=== PATIENT | female | born 1980 | race Caucasian/White ===

== ENCOUNTER → 2021-10-07 | Outpatient (CLI) | payer MEDICAID ==
--- NOTE | 2021-10-07 18:19 | Diagnostic Imaging Report ---
PROCEDURE: US OB single fetus <14 wks. TECHNIQUE: Multiple real-time grayscale images were obtained over the gravid uterus in various projections. INDICATION: Prior history of molar . There is a single live IUP measuring approximately 8 weeks 3 days gestational age. heart rate was recorded at 169 bpm. No perigestational sac hemorrhage is detected. Maternal adnexa are unremarkable. No adnexal mass or free fluid is detected. IMPRESSION: Single live IUP 8 weeks 3 days gestational age with estimated date of confinement sonographically of 05/16/2022. No complicating features are detected. Dictated by: Dictated on workstation # [id number]
== END ==
LOC: RAD 13:38
PROVIDERS: ATTEND Obstetrics & Gynecology
DX: Z34.91 Encounter for supervision of normal pregnancy, unspecified, first trimester (principal); Z3A.01 Less than 8 weeks gestation of pregnancy; Z87.59 Personal history of other complications of pregnancy, childbirth and the puerperium
CPT/HCPCS: 76801

== ENCOUNTER → 2021-12-27 | Outpatient (CLI) | payer MEDICAID ==
--- NOTE | 2021-12-27 13:21 | Diagnostic Imaging Report ---
INDICATION: survey. TECHNIQUE: Multiple real-time grayscale images were obtained over the gravid uterus. COMPARISON: 10/07/2021. FINDINGS: There is a single live fetus in transverse presentation head to maternal right. heart rate was recorded at 152 bpm. Placenta is posterior. There appears to be a complete placenta previa. Amniotic fluid volume is normal. Cervical length is 6.3 cm. survey shows kidneys, bladder and stomach to be unremarkable. brains unremarkable. There is a four-chamber heart. There is a three-vessel cord with normal insertion. spine is unremarkable. Biometrical measurements are as follows: Biparietal 4.62 cm, age 20 weeks 0 days. Head circumference 18.00 cm, age 20 weeks 4 days. Abdominal circumference 16.05 cm, age 21 weeks 2 days. Femur length 3.36 cm, age 20 weeks 4 days. Sonographic estimate age: 20 weeks 5 days. Sonographic estimated date of delivery: 05/11/2022. Estimated Weight: 378 gm (+/- 55 gm). LMP percentile: 87%. heart rate: 152 beats per minute. number: 1 of 1. IMPRESSION: Single live IUP 20 weeks 5 days gestational age with estimated date of confinement sonographic 05/11/2022. Note is made of complete placenta previa. Dictated by: Dictated on workstation # [id number]
== END ==
LOC: RAD 10:00
PROVIDERS: ATTEND Nurse Practitioner Women's Health
DX: O44.02 Complete placenta previa NOS or without hemorrhage, second trimester (principal); Z3A.20 20 weeks gestation of pregnancy
CPT/HCPCS: 76805

== ENCOUNTER → 2022-02-14 | Outpatient (CLI) | payer MEDICAID ==
--- NOTE | 2022-02-14 13:10 | Diagnostic Imaging Report ---
INDICATION: Placenta previa. TECHNIQUE: Multiple Real-time grayscale images were obtained over the gravid uterus. COMPARISON: 12/27/2021. FINDINGS: There is a single live fetus in a cephalic presentation. The heart rate was recorded at 136 BPM. A posterior placenta is noted. There continues to be complete placenta previa. The amniotic fluid index is 19.6 cm. The cervical length is 5.5 cm. Biometrical measurements are as follows: Biparietal 6.99 cm, age 28 weeks 1 days. Head circumference 26.50 cm, age 28 weeks 6 days. Abdominal circumference 23.71 cm, age 28 weeks 1 days. Femur length 5.30 cm, age 28 weeks 2 days. Sonographic estimate age: 28 weeks 3 days. Sonographic estimated date of delivery: 05/06/2022. Estimated Weight: 1182 gm (+/- 173 gm). LMP percentile: 83%. heart rate: 136 beats per minute. number: 1 of 1. IMPRESSION: Single live IUP of 28 weeks gestational age showing normal interval growth when compared to the prior exam. There continues to be complete placenta previa. Dictated by: Dictated on workstation # [id number]
== END ==
LOC: RAD 10:00
PROVIDERS: ATTEND Nurse Practitioner Women's Health
DX: O44.03 Complete placenta previa NOS or without hemorrhage, third trimester (principal); Z3A.28 28 weeks gestation of pregnancy
CPT/HCPCS: 76805

== ENCOUNTER → 2022-02-16 | Outpatient (CLI) | payer MEDICAID ==
[2022-02-16 15:26] LABS: BASOPHILS % (AUTO) 0 % (0-10); EOSINOPHILS # (AUTO) 0.2 10^3/uL (0.0-0.3); EOSINOPHILS % (AUTO) 3 % (0-10); HEMATOCRIT 38 % (35-52); HEMOGLOBIN 12.7 g/dL (11.5-16.0); LYMPHOCYTES # (AUTO) 1.4 X 10^3 (1.0-4.0); LYMPHOCYTES % (AUTO) 17 % (12-44); MEAN CORPUSCULAR HEMOGLOBIN 31 pg (25-34); MEAN CORPUSCULAR HGB CONC 33 g/dL (32-36); MEAN CORPUSCULAR VOLUME 94 fL (80-99); MEAN PLATELET VOLUME 9.9 fL (9.0-12.2); MONOCYTES # (AUTO) 0.5 X 10^3 (0.0-1.0); MONOCYTES % (AUTO) 7 % (0-12); NEUTROPHILS # (AUTO) 5.7 X 10^3 (1.8-7.8); NEUTROPHILS % (AUTO) 73 % (42-75); PLATELET COUNT 227 10^3/uL (130-400); WHITE BLOOD COUNT 7.9 10^3/uL (4.3-11.0)
== END ==
LOC: LABNPT 15:16
PROVIDERS: ATTEND Obstetrics & Gynecology
DX: Z34.82 Encounter for supervision of other normal pregnancy, second trimester (principal); Z3A.00 Weeks of gestation of pregnancy not specified
CPT/HCPCS: 82950; 85025

== ENCOUNTER → 2022-02-22 | Outpatient (CLI) | payer MEDICAID | LOC: CARD 09:00 | PROVIDERS: ATTEND Internal Medicine Cardiovascular Disease | DX: I34.0 Nonrheumatic mitral (valve) insufficiency (principal); I51.7 Cardiomegaly | CPT/HCPCS: 93225; 93226; 93306 ==

== ENCOUNTER 2022-04-13 18:27 | Outpatient (CLI) | payer MEDICAID ==
[~2022-04-13] VITALS: Ht 162.6 cm; Wt 84.6 kg
[2022-04-13 18:32] VITALS: BP 121/74
[2022-04-13 18:48] LABS: BILIRUBIN,URINE NEGATIVE (NEGATIVE); CLARITY,URINE CLEAR; COLOR,URINE YELLOW; GLUCOSE, URINE (UA) TRACE (NEGATIVE); KETONES,URINE NEGATIVE (NEGATIVE); LEUKOCYTE ESTERASE ,URINE NEGATIVE (NEGATIVE); NITRITE,URINE NEGATIVE (NEGATIVE); PROTEIN,URINE NEGATIVE (NEGATIVE)
[2022-04-13 18:51] VITALS: BP 121/74
[2022-04-13] MEDS ORDERED: MV-M1TAB66 PO (18:54)
[2022-04-13 18:58] LABS: BACTERIA,URINE TRACE /HPF; WBC,URINE RARE /HPF
[2022-04-13] MEDS ORDERED: ACETAMINOPHEN 500 MG TAB (TYLENOL) PO ONE (19:00)
[2022-04-13] MEDS ORDERED: diphenhydrAMINE 25 MG TAB (BENADRYL) PO ONE ×2 (19:15→19:38)
[2022-04-13] MEDS ORDERED: ACETAMINOPHEN 500 MG TAB (TYLENOL) ONE (19:37)
[2022-04-13 20:04] VITALS: BP 110/64
[2022-04-13 20:35] VITALS: BP 110/64
--- NOTE | 2022-04-14 10:40 | Physician Query-Final Dx ---
Clinic Account Progress/Dx Physician Query: Please give diagnosis Please include # weeks gestation Date of Service Apr 13, 2022 at 18:27 CURT,OctApr 14, 2022 10:40
== END 2022-04-13 20:40 | disposition home or self-care (01) ==
LOC: WSo 18:27 → LDRP 18:27 → WSo 20:40
PROVIDERS: ATTEND Obstetrics & Gynecology
DX: R10.9 Unspecified abdominal pain (principal)
CPT/HCPCS: 81000

== ENCOUNTER 2022-05-07 03:30 | Inpatient (IN) | payer MEDICAID ==
[2022-05-07] VITALS (42 sets, daily range): BP systolic 62–149; BP diastolic 40–100
[~2022-05-07] VITALS: Ht 162.6 cm; Wt 86.5 kg
[~2022-05-07 03:30] MED LIST: MV-M1TAB66 PO
[2022-05-07 04:22] LABS: BILIRUBIN,URINE NEGATIVE (NEGATIVE); CLARITY,URINE SL CLOUDY; COLOR,URINE YELLOW; GLUCOSE, URINE (UA) NEGATIVE (NEGATIVE); KETONES,URINE NEGATIVE (NEGATIVE); LEUKOCYTE ESTERASE ,URINE 2+ (NEGATIVE); NITRITE,URINE NEGATIVE (NEGATIVE); PROTEIN,URINE NEGATIVE (NEGATIVE)
[2022-05-07 04:31] LABS: BACTERIA,URINE FEW /HPF
--- NOTE | 2022-05-07 07:34 | History & Physical-OB/GYN ---
History of Present Illness History of Present Illness Reason for visit/HPI Vaginal bleeding Patient is a 41 year old , prior , EGA 38 weeks 5 days with presentation for painless vaginal bleeding. She woke up with a quarter size spot of bright red blood and came to the hospital. After an exam she had "blood running down my leg." No further bleeding. No pain, trauma/ sex, labor, ROM, decreased movement, prior vaginitis symptoms, abruption symptoms. She reports she was diagnosed with a placenta previa until about 2 weeks ago when it was noted to be cleared. No other OB problems by her report. Past Surg: Appendix, breast surgery, D&C for miscarriage Past medical: none Social: denies tobacco, street drug, alcohol, marijuana and vaping. ROS: Negative COVID survey on admit. normal / GI. NKDA, no glove allergies Meds: PNV OTC meds: Probiotics Immunizations: routine adult immunizations with no flu vaccines and declined COVID vaccine due to pregnancies. She has had her Tdap. Date of Admission / 05/07/2022/ Date Seen by a Provider: May 07, 2022 Time Seen by a Provider: 06:45 I consulted on this patient on 05/07/22 07:[address] Resendiz Admitting Physician Admitting Physician: Attending Physician: Christiano Alvarenga MD Consult Allergies and Home Medications Allergies Coded Allergies: No Known Drug Allergies (Unverified , 04/13/22) Patient Home Medication List Home Medication List Reviewed: Yes Mv-Mn/Iron/FA/Herbal/Digestive ( One Tablet) 27 Mg Iron-360 Mcg-125 Mg- 32 Mg Tablet, 1 EACH PO DAILY, (Reported) Entered as Reported by: TAVON DICKENS on 04/13/221853 Past Skbknwd-Ellhub-Fsviyx Hx Patient Social History Number of Children: 1 Number of living children: 1 Smoking Status: Former Smoker Cigaretts per day: 0 Former Smoker, Quit: Oct 16, 2003 2nd Hand Smoke Exposure: No Immunizations Up To Date Tetanus Booster (TDap): Less than 5yrs Surgeries Yes Abdominal, Breast Respiratory No Cardiovascular No Neurological No Reproductive System : Yes Expected Date of Delivery: May 16, 2022 Hx : 3 Hx Para: 1 Hx Total # of Abortions (Spona: 1 Genitourinary No Gastrointestinal No Review of Systems Constitutional: No no symptoms reported, No see HPI, No chills, No diaphoresis, No dizziness, No fever, No malaise, No weakness, No weight gain, No weight loss, No other EENTM: No see HPI, No no symptoms reported, No ear discharge, No hearing loss, No ear pain, No blurred vision, No double vision, No eye pain, No tearing, No vision loss, No dental problems, No hoarseness, No mouth pain, No mouth swelling, No epistaxis, No nose congestion, No nose pain, No throat pain, No throat swelling, No other Respiratory: No no symptoms reported, No see HPI, No cough, No dyspnea on exertion, No hemoptysis, No orthopnea, No phlegm, No short of breath, No stridor, No wheezing, No other Cardiovascular: No no symptoms reported, No see HPI, No chest pain, No edema, No Hx of Intervention, No palpitations, No syncope, No vascular heart diseas, No other Gastrointestinal: No RUQ, No LUQ, No RLQ, No LLQ, No no symptoms reported, No see HPI, No abdominal pain, No constipation, No diarrhea, No dysphagia, No hematemesis, No heartburn, No jaundice, No loss of appetite, No melena, No nausea, No vomiting, No other Genitourinary: No no symptoms reported, No see HPI, No decreased output, No discharge, No dysuria, No frequency, No hematuria, No hesitancy, No incontine nce, No nocturia, No pain, No other : Yes Physical Exam Physical Exam Vital Signs Vital Signs Date Time Temp Pulse Resp B/P (MAP) Pulse Ox O2 Delivery O2 Flow Rate FiO2 05/07/22 04:00 37.3 113 20 97 Room Air 05/07/22 04:00 37.3 113 20 97 Room Air 05/07/22 03:56 37.3 113 20 117/75 (89) 97 Room Air Capillary Refill : Less Than 3 Seconds Labs Laboratory Tests 05/07/22 04:00: Urine Color YELLOW, Urine Clarity SL CLOUDY, Urine pH 7.0, Urine Specific [place] 1.010L, Urine Protein NEGATIVE, Urine Glucose (UA) NEGATIVE, Urine Ketones NEGATIVE, Urine Nitrite NEGATIVE, Urine Bilirubin NEGATIVE, Urine Ur obilinogen 0.2, Urine Leukocyte Esterase 2+H, Urine RBC (Auto) 3+H, Urine RBC 5- 10H, Urine WBC 10-25H, Urine Squamous Epithelial Cells 2-5, Urine Crystals NONE, Urine Bacteria FEWH, Urine Casts NONE, Urine Mucus NEGATIVE, Urine Culture Indicated YES General Appearance: No Apparent Distress, WD/WN Respiratory: Chest Non Tender, Lungs Clear, Normal Breath Sounds, No Accessory Muscle Use, No Respiratory Distress Cardiovascular: Regular Rate, Rhythm, No Edema, No Gallop, No JVD Abdominal: normal bowel sounds, non tender, soft Extremity: Normal Capillary Refill, Normal Inspection, Normal Range of Motion, Non Tender, No Calf Tenderness, No Pedal Edema Assessment/Plan Assessment and Plan Third trimester bleeding at 38 weeks Plan: Ultrasound of placenta and rule out vaso previa Discussed options of management if ultrasound normal. My preference is for outpatient follow up, but if patien tis cons=cerned enough or if bleeding recurs, labor occurs or ROM, then induction of labor (IOL) is rational. Risks of IOL and outpatinet management disucssed. Admission Diagnosis Admission Status: Observation Copy Copies To 1: CARRIE RESENDIZ,CHRISTIANO Stevens MD May 07, 2022 07:34
--- NOTE | 2022-05-07 10:02 | Diagnostic Imaging Report ---
INDICATION: Vaginal bleeding. COMPARISON: 02/14/2022. TECHNIQUE: Limited third trimester OB ultrasound was performed on 05/07/2022. FINDINGS: A single intrauterine gestation is identified in a cephalic presentation. cardiac motion is documented at 142 BPM. anatomy is not specifically evaluated on this examination. Amniotic fluid index is within normal limits at 18.5 cm with the largest single pocket measuring 6.3 cm. The cervix is closed measuring 4.5 cm in length. The placenta is posteriorly located. There is no evidence of placenta previa on this examination. IMPRESSION: Single intrauterine gestation in a cephalic presentation. The cervix appears closed without evidence of placenta previa. Dictated by: Dictated on workstation # [id number]
--- NOTE | 2022-05-07 10:27 | Progress Note ---
Standard Progress Note Progress Notes/Assess & Plan Date Seen by a Provider: May 07, 2022 Time Seen by a Provider: 10:10 Progress/Assessment & Plan Patient passed another 200 ml of liquid and clotted red blood. Discussed with patient and she agrees to an induction of labor. Cervix 2/80%/-2/ soft/ midplane. EFW 7 pounds 12 ounces and adequate pelvis for a trial of labor. Reactive NST with irregular contractions. EFG/ perianal normal on exam. I had previously discussed risks, benefits and options of induction of labor and she agrees to an IOL. CHRISTIANO KELLER MD May 07, 2022 10:27
[2022-05-07] MEDS ORDERED: OXYTOCIN PRE-MIX DRIP 500 ML IV SCH ×2 (10:30→17:15)
[2022-05-07] MEDS ORDERED: CATHETER FLUSH 10 ML SYR IV PRN (10:30)
[2022-05-07] MEDS ORDERED: D5 LR IV SOLUTION 1,000 ML IV SCH (10:30)
[2022-05-07 11:11] LABS: BASOPHILS % (AUTO) 0 % (0-10); EOSINOPHILS # (AUTO) 0.1 10^3/uL (0.0-0.3); EOSINOPHILS % (AUTO) 2 % (0-10); HEMATOCRIT 41 % (35-52); LYMPHOCYTES # (AUTO) 1.6 10^3/uL (1.0-4.0); LYMPHOCYTES % (AUTO) 19 % (12-44); MEAN CORPUSCULAR HEMOGLOBIN 30 pg (25-34); MEAN CORPUSCULAR HGB CONC 34 g/dL (32-36); MEAN CORPUSCULAR VOLUME 89 fL (80-99); MEAN PLATELET VOLUME 10.5 fL (9.0-12.2); MONOCYTES # (AUTO) 0.7 10^3/uL (0.0-1.0); MONOCYTES % (AUTO) 8 % (0-12); NEUTROPHILS % (AUTO) 71 % (42-75); PLATELET COUNT 195 10^3/uL (130-400); WHITE BLOOD COUNT 8.6 10^3/uL (4.3-11.0)
[2022-05-07] MEDS ORDERED: fentaNYL 2 mcg/ml BUPIVA 0.125 100 ML ONE (11:43)
[2022-05-07] MEDS ORDERED: diphenhydrAMINE 50 MG/ML INJ (BENADRYL) IV PRN (12:30)
[2022-05-07] MEDS ORDERED: EPIDURAL (fentaNYL 2 MCG/ML BUPIVA 0.125%)100 ML BAG EPI SCH (12:30)
[2022-05-07] MEDS ORDERED: METOCLOPRAMIDE INJ 10 MG/2 ML (REGLAN) IV PRN (12:30)
[2022-05-07] MEDS ORDERED: NALOXONE 0.4 MG/ML 1 ML (NARCAN) VIAL IV PRN ×3 (12:30→17:15)
[2022-05-07] MEDS ORDERED: ONDANSETRON 4 MG/2 ML (SDV) Z0FRAN IV PRN (12:30)
[2022-05-07] MEDS ORDERED: LACTATED RINGERS 1,000 ML IV SCH (12:30)
[2022-05-07] MEDS ORDERED: CATHETER FLUSH 10 ML SYR IV SCH (14:00)
--- NOTE | 2022-05-07 14:12 | Labor Progress Note ---
Labor Progress Note Labor Progress Note Date Seen by Provider: May 07, 2022 Time Seen by Provider: 13:55 Subjective: Pt denies complaints. Date Seen by a Provider: May 07, 2022 Time Seen by a Provider: 13:04 Progress/Assessment & Plan Reactive NST with baseline 150 BPM, moderate variability, good accels, no recent decels, contractions 2-5 minutes apart, 30-60 seconds length. Cervix still 2 cm/ 80%. AROM clear fluid. Minimal bleeding and not BRB. US results reviewed. Pitocin at [address] with good effect. Plan: CPM Vitals - Labs Vital Signs - I&O Vital Signs Date Time Temp Pulse Resp B/P (MAP) Pulse Ox O2 Delivery O2 Flow Rate FiO2 05/07/22 13:36 100 18 102/63 (76) 97 Room Air 05/07/22 13:22 82 18 104/57 (73) 97 Room Air 05/07/22 13:05 88 18 112/67 (82) 96 Room Air 05/07/22 12:53 94 18 117/72 (87) 100 Room Air 05/07/22 12:50 96 18 109/62 (78) 100 Room Air 05/07/22 12:47 75 18 113/59 (77) 99 Room Air 05/07/22 12:45 75 18 62/40 (47) 99 Room Air 05/07/22 12:43 93 18 112/64 (80) 99 Room Air 05/07/22 12:42 105 18 96/58 (71) 99 Room Air 05/07/22 12:38 83 18 117/58 (77) 99 Room Air 05/07/22 12:35 104 18 119/57 (77) 99 Room Air 05/07/22 12:32 88 18 120/61 (80) 99 Room Air 05/07/22 12:29 81 18 121/64 (83) 100 Room Air 05/07/22 12:26 92 18 120/65 (83) 99 Room Air 05/07/22 12:23 85 18 118/62 (80) 99 Room Air 05/07/22 12:20 91 18 120/66 (84) 99 Room Air 05/07/22 12:17 86 18 120/68 (85) 99 Room Air 05/07/22 12:14 85 18 123/72 (89) 100 Room Air 05/07/22 12:11 96 18 127/76 (93) 98 Room Air 05/07/22 12:08 104 18 139/76 (97) 100 Room Air 05/07/22 12:05 109 18 145/88 (107) 100 Room Air 05/07/22 12:01 95 18 137/85 (102) 100 Room Air 05/07/22 12:00 88 18 133/82 (99) 05/07/22 08:10 36.1 81 18 134/73 (93) 05/07/22 04:00 37.3 113 20 97 Room Air 05/07/22 04:00 37.3 113 20 97 Room Air 05/07/22 03:56 37.3 113 20 117/75 (89) 97 Room Air Labs Laboratory Tests 05/07/22 04:00: Urine Color YELLOW, Urine Clarity SL CLOUDY, Urine pH 7.0, Urine Specific [place] 1.010L, Urine Protein NEGATIVE, Urine Glucose (UA) NEGATIVE, Urine Ketones NEGATIVE, Urine Nitrite NEGATIVE, Urine Bilirubin NEGATIVE, Urine Urobilinogen 0.2, Urine Leukocyte Esterase 2+H, Urine RBC (Auto) 3+H, Urine RBC 5-10H, Urine WBC 10-25H, Urine Squamous Epithelial Cells 2-5, Urine Crystals NONE, Urine Bacteria FEWH, Urine Casts NONE, Urine Mucus NEGATIVE, Urine Culture Indicated YES 05/07/22 10:50: White Blood Count 8.6, Red Blood Count 4.60, Hemoglobin 14.0, Hematocrit 41, Mean Corpuscular Volume 89, Mean Corpuscular Hemoglobin 30, Mean Corpuscular Hemoglobin Concent 34, Red Cell Distribution Width 13.6, Platelet Count 195, Mean Platelet Volume 10.5, Immature Granulocyte % (Auto) 1, Neutrophils (%) (Auto) 71, Lymphocytes (%) (Auto) 19, Monocytes (%) (Auto) 8, Eosinophils (%) (Auto) 2, Basophils (%) (Auto) 0, Neutrophils # (Auto) 6.0, Lymphocytes # (Auto) 1.6, Monocytes # (Auto) 0.7, Eosinophils # (Auto) 0.1, Basophils # (Auto) 0.0, Immature Granulocyte # (Auto) 0.1 05/07/22 11:15: CHRISTIANO KELLER MD May 07, 2022 14:12
[2022-05-07] MEDS ORDERED: CITRIC ACID/SOB CIT (BICITRA) 30 ML UDC PO ONE (15:45)
[2022-05-07] MEDS ORDERED: METOCLOPRAMIDE INJ 10 MG/2 ML (REGLAN) IV ONE (15:45)
[2022-05-07] MEDS ORDERED: AZITHROMYCIN INJECTION 500 MG in NS (IVPB) 250 ML IV ONE (15:45)
[2022-05-07] MEDS ORDERED: FAMOTIDINE 20MG/2ML IV (PEPCID) IV ONE (15:45)
[2022-05-07] MEDS ORDERED: ceFAZolin 2 GM IV Premixed 50 ML IV ONE (15:45)
--- NOTE | 2022-05-07 15:58 | Pre-Procedure Progress Note ---
Pre-Procedure Progress Note H&P Reviewed The H&P was reviewed, patient examined and no changes noted. Date H&P Reviewed: May 07, 2022 Time H&P Reviewed: 15:43 Pre-Procedure Diagnosis: Placental abruption Patient has had another 200 ml loss of blood, BRB, minimal clots. I have discussed this finding and have found a reactive NST. Options to include further IOL/ trial of labor and section discussed with risks and benefits and she has elected to have a Section. She understands a further trial of labor risks severe compromise from an extending abruption. She under stands a section risks PE/ DVT/ infection/ poor wound healing, anesthesia complication, transfusion, accidental risk of injury to bowel, bladder, female or reproductive organs that may require immediate or future surgery for repair. She understands a Section now compared to a vaginal delivery increases her risk of future sections and placental abnormalities. H&P reviewed. The patient was examined and there are no changes to the H&P. A preoperative time out was performed in the presence of the preoperative nurse and consisted of my going over the paper consent with her as well as confirming her identity using her identification bracelet, and she gave her name, , procedure planned, planned surgeon and then confirmed her signature on the paper consent (which contained her name, and surgery information) is authentic. All her questions were answered and concerns addressed. Patient identification (Correct identification using 2 patient identifiers): Yes Signed consent obtained with correct procedure verified: Yes Site marked and verified (patient involved in site marking if possible): Meets Exemption CHRISTIANO KELLER MD May 07, 2022 15:57
[2022-05-07] MEDS ORDERED: fentaNYL INJ 100 MCG/2 ML AMP ONE (16:04)
[2022-05-07] MEDS ORDERED: LIDOCAINE PF 2% 5 ML (XYLOCAINE) VIAL ONE (16:04)
[2022-05-07] MEDS ORDERED: BUPIVACAINE 0.25% 30 ML (SENSORCAINE) VIAL ONE (16:04)
[2022-05-07] MEDS ORDERED: OXYTOCIN PRE-MIX DRIP 500 ML IV ONE (16:04)
[2022-05-07] MEDS ORDERED: ONDANSETRON 4 MG/2 ML (SDV) Z0FRAN ONE (16:04)
[2022-05-07] MEDS: KETOROLAC 30 MG/ML VIAL IV SCH ×2 (16:39→22:43)
[2022-05-07] MEDS ORDERED: KETOROLAC 30 MG/ML VIAL ONE (16:42)
[2022-05-07] MEDS ORDERED: MEASLES,MUMPS,RUBELLA 1 EA INJ SC SCH (17:15)
[2022-05-07] MEDS ORDERED: ONDANSETRON 4 MG/2 ML (SDV) Z0FRAN IVP PRN ×2 (17:15→17:30)
[2022-05-07] MEDS ORDERED: METHYLERGONOVINE 0.2 MG/ML (METHERGINE) AMP IM PRN (17:15)
--- NOTE | 2022-05-07 17:28 | Cesarean Section Operative ---
Procedure Procedure Note Pre-operative Diagnosis: Sam logan (41 /Para 3 / 1,Gestational Age (wks)38 with [abruptio placenta] Post-operative Diagnosis: same [] Procedure: [] low transverse section Physician: CHRISTIANO KELLER Kilnman: [none]none Estimated blood loss: [800 ml] Disposition: [to floor] Findings: Viable [male] infant, Apgars [8/9], weight [9 pounds +], intact placenta, 3vc, normal appearing uterus except couvelaire, tubes, and ovaries. Indications:Sam logan (41 /Para 3 / 1,Gestational Age (wks)38 presenting for [vaginal bleeding]. Procedure Details: The patient was seen in pre-op and the procedure was discussed with the patient in full, including the risks, benefits, and alternatives. All questions were answered. The patient was taken to the operating room and a time out was performed, verifying patient and procedure. After spinal anesthesia was placed by our anesthesia colleagues, the patient was placed in the dorsal supine with leftward tilt for uterine displacement.~ Her abdomen was then prepped and draped in the typical sterile fashion. A Misgav Ladach variant of the Pfannenstiel skin incision was made. This was then stretched laterally using manual strength. After entering the abdominal cavity and confirming lack of intraperitoneal adhesions, a large Jesus retractor was placed and the lower uterine segment was visualized. A bladder flap was created with the use of Metzenbaum scissors and then it was utilized to make a low transverse uterine incision. Amniotomy was performed with return of clear fluid. The 's head was grasped and brought to the level of the incision. Fundal pressure was applied and infant was delivered without difficulty. Mouth and nares were suctioned with bulb suction. After the umbilical cord was clamped and cut, the was handed off to the pediatric staff. A sample of cord blood was then obtained. The placenta was delivered intact via uterine massage. The uterus was exteriorized and cleared of all clots and debris. The uterine incision was closed using 0 Monocryl in a running locked fashion. A second imbricated layer was placed using 0 Monocryl in a running fashion as well. The uterus was flexed forward and the posterior rectouterine space was inspected and cleared of all clots and debris. Again the hysterotomy site was examined and hemostasis was observed after one fihure of eight suture near the midline using 0 Monocryl. The bilateral tubes and ovaries appeared normal. The uterus was placed back into the abdominal cavity and abdominal gutters were cleared of all clots and debris. A final check of the uterine incision showed it to be hemostatic. The fascia was closed with 0 Vicryl in a running fashion. The subcutaneous space was hemostatic, and irrigated. The subcutaneous space was closed with 2-0 Vicryl in several layers of running stitches. The skin was then closed using 4-0 Monocryl in a running subcuticular fashion. The skin edges were reapproximated together and were hemostatic. Dermabond was applied. A pressure dressing was applied. All sponge, lap and needle counts were correct at the end of the procedure per nursing and all attendees. Vitals - Labs Vital Signs - I&O Vital Signs Date Time Temp Pulse Resp B/P (MAP) Pulse Ox O2 Delivery O2 Flow Rate FiO2 05/07/22 16:05 88 18 133/73 (93) Room Air 05/07/22 15:51 71 18 129/65 (86) 99 Room Air 05/07/22 15:38 102 18 149/100 (116) 99 Room Air 05/07/22 15:22 85 18 118/74 (89) 100 Room Air 05/07/22 15:08 80 18 117/70 (86) 97 Room Air 05/07/22 14:52 73 18 119/69 (86) 99 Room Air 05/07/22 14:37 96 18 110/65 (80) 99 Room Air 05/07/22 14:22 88 18 110/64 (79) 100 Room Air 05/07/22 14:08 72 18 107/59 (75) 100 Room Air 05/07/22 13:52 36.8 75 18 111/65 (80) 95 Room Air 05/07/22 13:36 100 18 102/63 (76) 97 Room Air 05/07/22 13:22 82 18 104/57 (73) 97 Room Air 05/07/22 13:05 88 18 112/67 (82) 96 Room Air 05/07/22 12:53 94 18 117/72 (87) 100 Room Air 05/07/22 12:50 96 18 109/62 (78) 100 Room Air 05/07/22 12:47 75 18 113/59 (77) 99 Room Air 05/07/22 12:45 75 18 62/40 (47) 99 Room Air 05/07/22 12:43 93 18 112/64 (80) 99 Room Air 05/07/22 12:42 105 18 96/58 (71) 99 Room Air 05/07/22 12:38 83 18 117/58 (77) 99 Room Air 05/07/22 12:35 104 18 119/57 (77) 99 Room Air 05/07/22 12:32 88 18 120/61 (80) 99 Room Air 05/07/22 12:29 81 18 121/64 (83) 100 Room Air 05/07/22 12:26 92 18 120/65 (83) 99 Room Air 05/07/22 12:23 85 18 118/62 (80) 99 Room Air 05/07/22 12:20 91 18 120/66 (84) 99 Room Air 05/07/22 12:17 86 18 120/68 (85) 99 Room Air 05/07/22 12:14 85 18 123/72 (89) 100 Room Air 05/07/22 12:11 96 18 127/76 (93) 98 Room Air 05/07/22 12:08 104 18 139/76 (97) 100 Room Air 05/07/22 12:05 109 18 145/88 (107) 100 Room Air 05/07/22 12:01 95 18 137/85 (102) 100 Room Air 05/07/22 12:00 88 18 133/82 (99) 05/07/22 08:10 36.1 81 18 134/73 (93) 05/07/22 04:00 37.3 113 20 97 Room Air 05/07/22 04:00 37.3 113 20 97 Room Air 05/07/22 03:56 37.3 113 20 117/75 (89) 97 Room Air Labs Laboratory Tests 05/07/22 04:00: Urine Color YELLOW, Urine Clarity SL CLOUDY, Urine pH 7.0, Urine Specific [place] 1.010L, Urine Protein NEGATIVE, Urine Glucose (UA) NEGATIVE, Urine Ketones NEGATIVE, Urine Nitrite NEGATIVE, Urine Bilirubin NEGATIVE, Urine Urobilinogen 0.2, Urine Leukocyte Esterase 2+H, Urine RBC (Auto) 3+H, Urine RBC 5-10H, Urine WBC 10-25H, Urine Squamous Epithelial Cells 2-5, Urine Crystals NONE, Urine Bacteria FEWH, Urine Casts NONE, Urine Mucus NEGATIVE, Urine Culture Indicated YES 05/07/22 10:50: White Blood Count 8.6, Red Blood Count 4.60, Hemoglobin 14.0, Hematocrit 41, Mean Corpuscular Volume 89, Mean Corpuscular Hemoglobin 30, Mean Corpuscular Hemoglobin Concent 34, Red Cell Distribution Width 13.6, Platelet Count 195, Mean Platelet Volume 10.5, Immature Granulocyte % (Auto) 1, Neutrophils (%) (Auto) 71, Lymphocytes (%) (Auto) 19, Monocytes (%) (Auto) 8, Eosinophils (%) (Auto) 2, Basophils (%) (Auto) 0, Neutrophils # (Auto) 6.0, Lymphocytes # (Auto) 1.6, Monocytes # (Auto) 0.7, Eosinophils # (Auto) 0.1, Basophils # (Auto) 0.0, Immature Granulocyte # (Auto) 0.1 05/07/22 11:15: CHRISTIANO KELLER MD May 07, 2022 17:28
[2022-05-07] MEDS ORDERED: morphine INJ 10 MG/ML 1ML (SYR OR VIAL) IVP ONE (17:30)
[2022-05-07] MEDS ORDERED: MEPERIDINE (DEMEROL) INJ 50 MG/ML IVP ONE (17:30)
--- NOTE | 2022-05-07 17:31 | OB Labor & Delivery Record ---
L&D History Date of Service Date of Service: May 07, 2022 History Expected Date of Delivery: May 16, 2022 Gestational Age in Weeks: 38 Hx : 3 Hx Para: 1 Complications Events: Routine care Operative Indications (Cesarea: Abruptio Placenta Intrapartal Events: Abruptio Placenta L&D Stage1 Monitors and Tracing Monitor Mode: External Heart Rate: 130 Monitor Decelerations: None Station: -3 Vital Signs VS - Last 72 Hours, by Label 05/07/22 05/07/22 05/07/22 05/07/22 03:56 04:00 04:00 08:10 Temp 37.3 37.3 37.3 36.1 Pulse 113 113 113 81 Resp 20 20 20 18 B/P (MAP) 117/75 (89) 134/73 (93) Pulse Ox 97 97 97 O2 Delivery Room Air Room Air Room Air 05/07/22 05/07/22 05/07/22 05/07/22 12:00 12:01 12:05 12:08 Pulse 88 95 109 104 Resp 18 18 18 18 B/P (MAP) 133/82 (99) 137/85 (102) 145/88 (107) 139/76 (97) Pulse Ox 100 100 100 O2 Delivery Room Air Room Air Room Air 05/07/22 05/07/22 05/07/22 05/07/22 12:11 12:14 12:17 12:20 Pulse 96 85 86 91 Resp 18 18 18 18 B/P (MAP) 127/76 (93) 123/72 (89) 120/68 (85) 120/66 (84) Pulse Ox 98 100 99 99 O2 Delivery Room Air Room Air Room Air Room Air 05/07/22 05/07/22 05/07/22 05/07/22 12:23 12:26 12:29 12:32 Pulse 85 92 81 88 Resp 18 18 18 18 B/P (MAP) 118/62 (80) 120/65 (83) 121/64 (83) 120/61 (80) Pulse Ox 99 99 100 99 O2 Delivery Room Air Room Air Room Air Room Air 05/07/22 05/07/22 05/07/22 05/07/22 12:35 12:38 12:42 12:43 Pulse 104 83 105 93 Resp 18 18 18 18 B/P (MAP) 119/57 (77) 117/58 (77) 96/58 (71) 112/64 (80) Pulse Ox 99 99 99 99 O2 Delivery Room Air Room Air Room Air Room Air 05/07/22 05/07/22 05/07/22 05/07/22 12:45 12:47 12:50 12:53 Pulse 75 75 96 94 Resp 18 18 18 18 B/P (MAP) 62/40 (47) 113/59 (77) 109/62 (78) 117/72 (87) Pulse Ox 99 99 100 100 O2 Delivery Room Air Room Air Room Air Room Air 05/07/22 05/07/22 05/07/22 05/07/22 13:05 13:22 13:36 13:52 Temp 36.8 Pulse 88 82 100 75 Resp 18 18 18 18 B/P (MAP) 112/67 (82) 104/57 (73) 102/63 (76) 111/65 (80) Pulse Ox 96 97 97 95 O2 Delivery Room Air Room Air Room Air Room Air 05/07/22 05/07/22 05/07/22 05/07/22 14:08 14:22 14:37 14:52 Pulse 72 88 96 73 Resp 18 18 18 18 B/P (MAP) 107/59 (75) 110/64 (79) 110/65 (80) 119/69 (86) Pulse Ox 100 100 99 99 O2 Delivery Room Air Room Air Room Air Room Air 05/07/22 05/07/22 05/07/22 05/07/22 15:08 15:22 15:38 15:51 Pulse 80 85 102 71 Resp 18 18 18 18 B/P (MAP) 117/70 (86) 118/74 (89) 149/100 (116) 129/65 (86) Pulse Ox 97 100 99 99 O2 Delivery Room Air Room Air Room Air Room Air 05/07/22 16:05 Pulse 88 Resp 18 B/P (MAP) 133/73 (93) O2 Delivery Room Air Rupture of Membranes Amniotic Membrane Rupture Time: 1400 Induction/Anesthesia Epidural Cath Placement - Time: 1205 L&D Stage2 Monitors and Tracing Monitor Mode: External Heart Rate: 130 Monitor Decelerations: None L&D Stage3 Pictocin Pitocin Administration mu/min: 0 Pitocin ml/hr: 0 Placenta Delivery Placenta Delivery: Manual Delivery Summary Summary Estimated blood loss (mL): 800 Condition of Delivery Post Hemorrhage: No CHRISTIANO KELLER MD May 07, 2022 17:31
[2022-05-07] MEDS: morphine INJ 4 MG/ML 1 ML (VIAL/SYRINGE) IV PRN ×3 (18:16→23:19)
[2022-05-07] MEDS: DOCUSATE SODIUM 100 MG (COLACE) CAP PO SCH (20:21)
[2022-05-07] MEDS: METOCLOPRAMIDE 10 MG (REGLAN) TAB PO SCH (20:22)
[2022-05-07] MEDS: ACETAMINOPHEN 500 MG TAB (TYLENOL) PO SCH (20:22)
[2022-05-07] MEDS: CATHETER FLUSH 10 ML SYR IV SCH (22:44)
[2022-05-08 01:45] VITALS: BP 112/65
[2022-05-08] MEDS: morphine INJ 4 MG/ML 1 ML (VIAL/SYRINGE) IV PRN (02:04)
[2022-05-08 04:20] VITALS: BP 107/62
[2022-05-08] MEDS: ACETAMINOPHEN 500 MG TAB (TYLENOL) PO SCH ×4 (04:20→21:58)
[2022-05-08] MEDS: KETOROLAC 30 MG/ML VIAL IV SCH ×2 (04:20→09:56)
[2022-05-08] MEDS: METOCLOPRAMIDE 10 MG (REGLAN) TAB PO SCH ×4 (04:21→21:58)
--- NOTE | 2022-05-08 06:05 | Postpartum Progress Note ---
Post Op Post-operative Day #[1] Subjective: Patient is without complaints. Ambulating, voiding after johnson removed. Tolerating a regular diet without nausea or vomiting. Normal lochia. Pain is well controlled with oral pain medications. Passing flatus. [] feeding. [] Objective: [AF, VSS] Physical Exam: General - Alert and oriented, no apparent distress Abdomen - Soft, appropriately tender to palpation, non-distended, fundus firm at umbilicus Incision - clean, dry and intact; no erythema or induration, no drainage Extremities - no edema, negative Reena's bilaterally Assessment: [C Section] post-operative day # [1]. Recovering well, hemodynamically stable Plan: Routine post-operative care. Encourage breast feeding. Encourage ambulation. VTE prophylaxis: SCDs. Ferrous sulfate supplementation. Plan for discharge [] Vitals - Labs Vital Signs - I&O Vital Signs Date Time Temp Pulse Resp B/P (MAP) Pulse Ox O2 Delivery O2 Flow Rate FiO2 05/08/22 04:20 36.3 74 18 107/62 (77) 96 Room Air 05/08/22 01:45 36.4 73 18 112/65 (81) 98 Room Air 05/07/22 23:19 36.4 75 18 99/58 (72) 96 Room Air 05/07/22 20:20 36.3 71 18 104/58 (73) 98 Room Air 05/07/22 18:08 36.5 16 106/68 (81) 98 Room Air 05/07/22 18:08 Room Air 05/07/22 17:53 Room Air 05/07/22 17:53 36.5 16 99/74 (82) 98 Room Air 05/07/22 17:38 36.5 16 98/62 (74) 98 Room Air 05/07/22 17:38 Room Air 05/07/22 17:23 36.5 18 92/59 (70) 98 Room Air 05/07/22 17:23 Room Air 05/07/22 16:05 88 18 133/73 (93) Room Air 05/07/22 15:51 71 18 129/65 (86) 99 Room Air 05/07/22 15:38 102 18 149/100 (116) 99 Room Air 05/07/22 15:22 85 18 118/74 (89) 100 Room Air 05/07/22 15:08 80 18 117/70 (86) 97 Room Air 05/07/22 14:52 73 18 119/69 (86) 99 Room Air 05/07/22 14:37 96 18 110/65 (80) 99 Room Air 05/07/22 14:22 88 18 110/64 (79) 100 Room Air 05/07/22 14:08 72 18 107/59 (75) 100 Room Air 05/07/22 13:52 36.8 75 18 111/65 (80) 95 Room Air 05/07/22 13:36 100 18 102/63 (76) 97 Room Air 05/07/22 13:22 82 18 104/57 (73) 97 Room Air 05/07/22 13:05 88 18 112/67 (82) 96 Room Air 05/07/22 12:53 94 18 117/72 (87) 100 Room Air 05/07/22 12:50 96 18 109/62 (78) 100 Room Air 05/07/22 12:47 75 18 113/59 (77) 99 Room Air 05/07/22 12:45 75 18 62/40 (47) 99 Room Air 05/07/22 12:43 93 18 112/64 (80) 99 Room Air 05/07/22 12:42 105 18 96/58 (71) 99 Room Air 05/07/22 12:38 83 18 117/58 (77) 99 Room Air 05/07/22 12:35 104 18 119/57 (77) 99 Room Air 05/07/22 12:32 88 18 120/61 (80) 99 Room Air 05/07/22 12:29 81 18 121/64 (83) 100 Room Air 05/07/22 12:26 92 18 120/65 (83) 99 Room Air 05/07/22 12:23 85 18 118/62 (80) 99 Room Air 05/07/22 12:20 91 18 120/66 (84) 99 Room Air 05/07/22 12:17 86 18 120/68 (85) 99 Room Air 05/07/22 12:14 85 18 123/72 (89) 100 Room Air 05/07/22 12:11 96 18 127/76 (93) 98 Room Air 05/07/22 12:08 104 18 139/76 (97) 100 Room Air 05/07/22 12:05 109 18 145/88 (107) 100 Room Air 05/07/22 12:01 95 18 137/85 (102) 100 Room Air 05/07/22 12:00 88 18 133/82 (99) 05/07/22 08:10 36.1 81 18 134/73 (93) I & O 05/08/22 07:00 Intake Total 2250 ml Balance 2250 ml Labs Laboratory Tests 05/07/22 10:50: White Blood Count 8.6, Red Blood Count 4.60, Hemoglobin 14.0, Hematocrit 41, Mean Corpuscular Volume 89, Mean Corpuscular Hemoglobin 30, Mean Corpuscular Hemoglobin Concent 34, Red Cell Distribution Width 13.6, Platelet Count 195, Mean Platelet Volume 10.5, Immature Granulocyte % (Auto) 1, Neutrophils (%) (Auto) 71, Lymphocytes (%) (Auto) 19, Monocytes (%) (Auto) 8, Eosinophils (%) (Auto) 2, Basophils (%) (Auto) 0, Neutrophils # (Auto) 6.0, Lymphocytes # (Auto) 1.6, Monocytes # (Auto) 0.7, Eosinophils # (Auto) 0.1, Basophils # (Auto) 0.0, Immature Granulocyte # (Auto) 0.1 05/07/22 11:15: HCRISTIANO KELLER MD May 08, 2022 06:05
[2022-05-08] MEDS: ceFAZolin INJECTION 1,000 MG in NS (IVPB) 50 ML IV SCH ×2 (06:32→14:53)
[2022-05-08] MEDS: CATHETER FLUSH 10 ML SYR IV SCH (07:06)
[2022-05-08 07:10] LABS: BASOPHILS % (AUTO) 0 % (0-10); EOSINOPHILS # (AUTO) 0.1 10^3/uL (0.0-0.3); EOSINOPHILS % (AUTO) 1 % (0-10); HEMATOCRIT 31 % (35-52); HEMOGLOBIN 10.4 g/dL (11.5-16.0); LYMPHOCYTES # (AUTO) 1.8 10^3/uL (1.0-4.0); LYMPHOCYTES % (AUTO) 22 % (12-44); MEAN CORPUSCULAR HEMOGLOBIN 31 pg (25-34); MEAN CORPUSCULAR HGB CONC 34 g/dL (32-36); MEAN CORPUSCULAR VOLUME 91 fL (80-99); MEAN PLATELET VOLUME 10.3 fL (9.0-12.2); MONOCYTES # (AUTO) 0.7 10^3/uL (0.0-1.0); MONOCYTES % (AUTO) 8 % (0-12); NEUTROPHILS # (AUTO) 5.9 10^3/uL (1.8-7.8); NEUTROPHILS % (AUTO) 69 % (42-75); PLATELET COUNT 148 10^3/uL (130-400); WHITE BLOOD COUNT 8.5 10^3/uL (4.3-11.0)
[2022-05-08 09:30] VITALS: BP 103/58
[2022-05-08] MEDS: DOCUSATE SODIUM 100 MG (COLACE) CAP PO SCH ×2 (09:55→21:57)
[2022-05-08 12:30] VITALS: BP 118/59
[2022-05-08 16:30] VITALS: BP 107/63
[2022-05-08] MEDS: IBUPROFEN 600 MG (MOTRIN) TAB PO SCH ×2 (16:46→21:58)
[2022-05-08 21:59] VITALS: BP 121/61
[2022-05-09] MEDS: IBUPROFEN 600 MG (MOTRIN) TAB PO SCH ×2 (04:00→09:24)
[2022-05-09] MEDS: METOCLOPRAMIDE 10 MG (REGLAN) TAB PO SCH ×2 (04:00→09:24)
[2022-05-09 04:01] VITALS: BP 108/59
[2022-05-09] MEDS: ACETAMINOPHEN 500 MG TAB (TYLENOL) PO SCH ×2 (04:01→09:24)
[2022-05-09 08:10] VITALS: BP 130/74
[2022-05-09] MEDS ORDERED: OXYC-199 PO ×2 (08:14→08:22)
[2022-05-09] MEDS ORDERED: IBUP-1773 PO (08:14)
--- NOTE | 2022-05-09 08:52 | Postpartum Progress Note ---
Post Op Post-operative Day #[2] Subjective: Patient is without complaints. Ambulating, voiding after johnson removed. Tolerating a regular diet without nausea or vomiting. Normal lochia. Pain is well controlled with oral pain medications. Passing a little flatus. Patient requests another day in the hospital due to being tired and not moving around as well as she'd like. Objective: [AF, VSS, good urine output.] Physical Exam: General - Alert and oriented, no apparent distress Chest/ CV - normal Abdomen - Soft, appropriately tender to palpation, non-distended, fundus firm at umbilicus Incision - clean, dry and intact; no erythema or induration, no drainage Extremities - no edema, negative Reena's bilaterally Assessment: [] post-operative day # [1], status post [Primary Low Transverse Section]. Recovering well, hemodynamically stable Plan: Routine post-operative care. Encourage ambulation. VTE prophylaxis: SCDs. Plan for discharge [tomrrow] Vitals - Labs Vital Signs - I&O Vital Signs Date Time Temp Pulse Resp B/P (MAP) Pulse Ox O2 Delivery O2 Flow Rate FiO2 05/09/22 04:01 36.4 84 96 108/59 (75) Room Air 05/08/22 21:59 36.2 79 18 121/61 (81) 96 Room Air 05/08/22 16:30 36.4 80 18 107/63 (78) 96 Room Air 05/08/22 12:30 36.2 92 18 118/59 (78) 96 Room Air 05/08/22 09:30 36.8 83 18 103/58 (73) 97 Room Air I & O 05/09/22 07:00 Intake Total 1550 ml Output Total 1100 ml Balance 450 ml Labs Microbiology 05/07/22 Urine Culture - Final, Complete YEAST Mixed Bacterial Anna CHRISTIANO KELLER MD May 09, 2022 08:52
--- NOTE | 2022-05-09 09:03 | Discharge Inst-Women's Service ---
Discharge Inst-Women's Serv Depart Medication/Instructions New, Converted or Re-Newed RX: Transmitted to Pharmacy Instructions F/u Dr Resendiz per his protocol Final Diagnosis See problem list Activity Driving Instructions: No Driving for 2 Weeks Nothing Inside Vagina: No Douching, No [place], No Tampons Other Activity No lifting over 15 pounds for 6 weeks Diet Discharge Diet: No Restrictions Return to The Hospital For: , Depression for more than 2 days, signs of DVT and PE also discussed, heavy vaginal bleeding Symptoms to Report to : Extremity Discoloration, Fever Over 101 Degrees F, Vaginal Bleeding Increase For Any Problems or Questions: Contact Your Physician Skin/Wound Care Infection Signs and Symptoms: Increased Redness, Foul Odor of Wound, Increased Drainage, Increased Swelling, Temperature Above 101 F Stitches/Joaquim/Dermabond: Dermabond Bathing Instructions: CHRISTIANO Carrillo MD May 09, 2022 09:03
[2022-05-09] MEDS: DOCUSATE SODIUM 100 MG (COLACE) CAP PO SCH (09:24)
--- NOTE | 2022-05-10 14:11 | Physician Query Clarification ---
PQ-Intro New Diagnosis Admission/Discharge Admission Date: May 07, 2022 at 10:30 Discharge Date: May 09, 2022 at 15:55 The medical record reflects the following clinical scenario: History/Risk Factors: , abruptio placenta Clinical Findings: Hgb on admission: 14.0, Hgb post 10.4 Treatment: Ferrous Sulfate Question: What condition best reflects the above clinical scenario? Please document a response in the Progress Noter or Discharge Summary. 1. Acute blood loss anemia 2. Anemia of 3. Other, with explanation of the clinical findings. 4. Clinically undetermined, no explanation for the clinical findings. In responding to this query, please exercise your independent professional judgment. The purpose of this communication is to more accurately reflect the complexity of your patients condition. The fact that a question is asked does not imply that any particular answer is desired or expected. Thank you for your timely response to this clarification. Requestors name: [ ] Phone # [ ] THIS PHYSICIAN QUERY FORM IS A PERMANENT PART OF THE MEDICAL RECORD HARDY RIZO May 10, 2022 14:11
== END 2022-05-09 15:55 | disposition home or self-care (01) | DRG 788 ==
LOC: WSo 03:30 → LDRP 03:32 → WSo 10:31 → LDRP 16:54
PROVIDERS: ADMIT Obstetrics & Gynecology; ATTEND Obstetrics & Gynecology
PROC: 3E033VJ Introduction of Other Hormone into Peripheral Vein, Percutaneous Approach (ICD-10-PCS; 2022-05-07)
PROC: 10D00Z1 Extraction of Products of Conception, Low, Open Approach (ICD-10-PCS; principal; 2022-05-07 16:16)
DX: O45.93 Premature separation of placenta, unspecified, third trimester (principal); Z3A.38 38 weeks gestation of pregnancy; Z37.0 Single live birth; Z28.310 Unvaccinated for COVID-19; Z87.891 Personal history of nicotine dependence
CPT/HCPCS: 36415; 76815; 81000; 85025; 86780; 86850; 86900; 86901; 87088; 88307; 99212

== ENCOUNTER → 2022-07-28 | Outpatient (CLI) | payer MEDICAID ==
[~2022-07-28] MED LIST changes: +IBUP-1773 PO; +OXYC-199 PO
--- NOTE | 2022-07-28 15:06 | Diagnostic Imaging Report ---
INDICATION: Routine screening. No prior mammograms are available for comparison. This is a baseline study. 2-D and 3-D bilateral screening mammography was performed with CAD. Both breasts are heterogeneously dense, limiting the sensitivity of mammography. No mass or malignant-appearing microcalcifications are seen. Axillae are unremarkable. IMPRESSION: BI-RADS Category 1 No mammographic features suspicious for malignancy are identified. Dictated by: Dictated on workstation # [id number]
== END ==
LOC: RAD 10:45
PROVIDERS: ATTEND Nurse Practitioner Women's Health
DX: Z12.31 Encounter for screening mammogram for malignant neoplasm of breast (principal)
CPT/HCPCS: 77063; 77067

== ENCOUNTER → 2022-10-18 | Outpatient (CLI) | payer MEDICAID ==
--- NOTE | 2022-10-18 18:38 | Diagnostic Imaging Report ---
Indication: Left hand pain. Time of Exam: 4:17 PM 3 views of the left hand were obtained. The metacarpals are intact. The phalanges are intact. Carpus unremarkable. No fractures are seen. Impression: No acute bony abnormality is detected. Dictated by: Dictated on workstation # [id number]
== END ==
LOC: RAD 15:16
PROVIDERS: ATTEND Nurse Practitioner Family
DX: M79.642 Pain in left hand (principal)
CPT/HCPCS: 73130

== ENCOUNTER → 2023-03-15 | Outpatient (CLI) | payer MEDICAID ==
--- NOTE | 2023-03-15 13:09 | Diagnostic Imaging Report ---
PROCEDURE: Pelvic comp/transvaginal sonogram. TECHNIQUE: Complete transabdominal and transvaginal pelvic ultrasound was performed. In addition, limited pelvic Doppler was performed. INDICATION: Left lower quadrant pain. Uterus is anteverted measuring 8.0 x 4.3 x 5.2 cm. Endometrium is 5 mm in thickness. There appears to be a fibroid measuring approximately 2.9 cm in size. Right ovary measures 3.5 x 1.6 x 1.3 cm, and left ovary measures 2.6 x 1.3 x 1.9 cm. Both ovaries demonstrate blood flow. No adnexal mass or free fluid is detected. There is a cervical nabothian cyst measuring 8 mm. IMPRESSION: 1. Uterine fibroid. 2. No other significant abnormality is detected. Dictated by: Dictated on workstation # [id number]
== END ==
LOC: RAD 10:10
PROVIDERS: ATTEND Nurse Practitioner Women's Health
DX: D25.9 Leiomyoma of uterus, unspecified (principal)
CPT/HCPCS: 76830; 76856